=== PATIENT | male | born 2000 | race African-American/Black ===

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

== ENCOUNTER 2021-06-09 18:55 | Emergency (ER) | payer OTHER, MEDICAID ==
[~2021-06-09] VITALS: Ht 152.4 cm; Wt 130.0 kg
[2021-06-09 19:32] VITALS: BP 148/93
[2021-06-09] MEDS ORDERED: METHOCARBAMOL500 MG PO (20:15)
[2021-06-09] MEDS ORDERED: MOTRIN800 MG PO (20:15)
[2021-06-09 20:16] VITALS: BP 129/109
== END 2021-06-09 20:57 | disposition home or self-care (01) | DRG 552 ==
LOC: ED 18:55
DX: S16.1XXA Strain of muscle, fascia and tendon at neck level, initial encounter (principal); S39.012A Strain of muscle, fascia and tendon of lower back, initial encounter; E66.01 Morbid (severe) obesity due to excess calories; V43.62XA Car passenger injured in collision with other type car in traffic accident, initial encounter